=== PATIENT | male | born 1990 | race Two or more races ===

== ENCOUNTER 2017-07-19 09:53 | Emergency (ER) | payer OTHER ==
[~2017-07-19] VITALS: Ht 177.8 cm; Wt 104.3 kg
[2017-07-19 10:07] VITALS: BP 124/79; Ht 177.8 cm; Wt 104.3 kg
== END 2017-07-19 11:37 | disposition home or self-care (01) ==
LOC: ED 09:53
DX: S39.012A Strain of muscle, fascia and tendon of lower back, initial encounter (principal); X58.XXXA Exposure to other specified factors, initial encounter; Y93.89 Activity, other specified; Y92.89 Other specified places as the place of occurrence of the external cause; Y99.8 Other external cause status
CPT/HCPCS: J1885

== ENCOUNTER 2019-11-01 22:51 | Emergency (ER) | payer MEDICAID ==
[~2019-11-01] VITALS: Ht 177.8 cm; Wt 112.5 kg
[2019-11-01 23:01] VITALS: Ht 177.8 cm; Wt 112.5 kg
[2019-11-01 23:27] VITALS: BP 130/77
== END 2019-11-01 23:27 | disposition home or self-care (01) ==
LOC: ED 22:51
DX: S91.331A Puncture wound without foreign body, right foot, initial encounter (principal); W22.8XXA Striking against or struck by other objects, initial encounter; Y93.89 Activity, other specified; Y92.89 Other specified places as the place of occurrence of the external cause; Y99.8 Other external cause status
CPT/HCPCS: 90715

== ENCOUNTER 2020-01-20 00:02 | Emergency (ER) | payer MEDICAID ==
[~2020-01-20] VITALS: Ht 177.8 cm; Wt 113.5 kg
[2020-01-20 00:10] VITALS: Ht 177.8 cm; Wt 113.5 kg
[2020-01-20 01:00] VITALS: BP 136/91
== END 2020-01-20 01:00 | disposition home or self-care (01) ==
LOC: ED 00:02
DX: S61.412A Laceration without foreign body of left hand, initial encounter (principal); W26.8XXA Contact with other sharp object(s), not elsewhere classified, initial encounter; Y93.89 Activity, other specified; Y92.89 Other specified places as the place of occurrence of the external cause; Y99.8 Other external cause status
CPT/HCPCS: J2001

== ENCOUNTER 2020-01-26 21:34 | Emergency (ER) | payer MEDICAID ==
[~2020-01-26] VITALS: Ht 177.8 cm; Wt 113.4 kg
[2020-01-26 22:00] VITALS: Ht 177.8 cm; Wt 113.4 kg
[2020-01-26 22:35] VITALS: BP 150/97
== END 2020-01-26 22:35 | disposition home or self-care (01) ==
LOC: ED 21:34
DX: S61.412D Laceration without foreign body of left hand, subsequent encounter (principal); X58.XXXD Exposure to other specified factors, subsequent encounter

== ENCOUNTER 2020-05-21 17:53 | Emergency (ER) | payer MEDICAID ==
[~2020-05-21] VITALS: Ht 177.8 cm; Wt 99.8 kg
[2020-05-21 18:04] VITALS: BP 142/93; Ht 177.8 cm; Wt 99.8 kg
[2020-05-21] MEDS ORDERED: MAGL PO (22:10)
== END 2020-05-21 22:32 | disposition home or self-care (01) ==
LOC: ED 17:53
DX: K59.00 Constipation, unspecified (principal); R51.9 Headache, unspecified
CPT/HCPCS: J1885